=== PATIENT | female | born 1945 | race African-American/Black ===

== ENCOUNTER 2020-02-14 16:01 | Inpatient (IN) | payer MEDICARE ==
--- NOTE | 2020-02-14 17:38 | RAD ---
Chest AP view INDICATION: Chest pain COMPARISON: CT of the thorax dated January 15, 2020 FINDINGS: Lungs: Acute right upper lobe lung mass is stable. Pulmonary nodularity of the left upper lobe persi sts Cardiac silhouette: There is mild cardiomegaly Pulmonary vasculature: There is mild pulmonary vascular congestion Pleural spaces: There are small bilateral pleural effusions Upper abdomen: No abnormality seen. Osseous structures: No acute osseous abnormality. Additional findings: None. IMPRESSION: 1. Findings suspicious for volume overload or mild CHF. 2. Stable large right upper lobe pulmonary nodule and pulmonary nodularity of the left upper lobe.
[2020-02-14 17:48] LABS: #Basophils 0.1 thou/uL (0.0-0.2); #Eosinphils 0.1 thou/uL (0.0-0.7); #Lymphocytes 0.7 thou/uL (1.20-3.40); #Monocytes 0.7 thou/uL (0.11-0.59); #Neutrophils 7.6 thou/uL (1.40-6.50); %Basophils 0.5 % (0.0-1.0); %Eosinophils 1.1 % (0.0-10.0); %Lymphocytes 7.1 % (21.0-51.0); %Monocytes 7.9 % (0.0-10.0); %Neutrophils 83.3 % (42.0-75.0); Hemoglobin 12.1 g/dL (12.0-16.0); Mean Corpuscular HGB CONC 32.2 g/dL (32.0-36.0); Mean Corpuscular Hemoglobin 26.6 pg (27.0-31.0); Mean Corpuscular Volume 82.6 fL (78.0-98.0); Platelet Count 403 thou/uL (130-400); RBC Distribution Width 13.8 % (11.5-14.5); Red Blood Cell (RBC) Count 4.56 mill/uL (4.20-5.40); White Blood Cell (WBC) Count 9.2 thou/uL (4.8-10.8)
[2020-02-14 18:11] LABS: ALT (SGPT) 10 U/L (8-55); AST (SGOT) 15 U/L (5-34); Albumin 3.5 g/dL (3.4-4.8); Alkaline Phosphatase 67 U/L (40-110); Anion Gap 14 mmol/L (10-20); BUN (Urea Nitrogen) 16 mg/dL (9.8-20.1); Bilirubin, Total 0.2 mg/dL (0.2-1.2); Calc. Creatinine Clearance 0 mL/min (70-130); Calcium 9.4 mg/dL (7.8-10.44); Carbon Dioxide 27 mmol/L (23-31); Chloride 103 mmol/L (98-107); Globulin 3.6 g/dL (2.4-3.5); Glucose 72 mg/dL (83-110); Potassium 4.3 mmol/L (3.5-5.1); Protein, Total 7.1 g/dL (6.0-8.3); Sodium 140 mmol/L (136-145)
--- NOTE | 2020-02-14 20:09 | PDOC.FPRHP ---
- History of Present Illness Chief Complaint: SOB History of Present Illness: Patient is a 74 yo female with PMH of HTN, HLD, DMII, metastatic lung cancer who was sent from radiation therapy due to hypoxia and orthopnea. According to the patient, she was diagnosed with lung cancer ~ 1 month ago. She has undergone bronchoscopy, PET scan, and Brain MRI which reveal small mets to the brain. She is currently undergoing radiation with plans to start chemotherapy in March. She reports that she has been experiencing SOB with exertion and orthopnea for ~ 3 weeks. She denies any fever, chills, or sick contacts. She is not on O2 at home. She reports a significant smoking history but denies diagnosis of COPD. - Allergies/Adverse Reactions Allergies Allergy/AdvReac Type Severity Reaction Status Date / Time No Known Drug Allergies Allergy Unverified 02/14/20 22:13 - History PMHx: HTN, HLD, DMII, Metastatic Lung Cancer, Thyroid Goiter PSHx: Bronchoscopy in 2019 FHx: heart disease in grandfather, breast cancer in mother Social: smoked 1/2 ppd of cigarettes for 50-60 years, quit 2 weeks ago, denies a/d, retired - Review of Systems General: reports: weight/appetite/sleep changes. denies: fever/chills Eyes: denies: eye pain, vision changes ENT: denies: nasal congestion, rhinorrhea Respiratory: reports: cough, shortness of breath Cardiovascular: denies: chest pain, edema Gastrointestinal: denies: nausea, vomiting, abdominal pain Genitourinary: denies: dysuria, polyuria Skin: denies: rashes, jaundice Musculoskeletal: reports: pain. denies: swelling Neurological: denies: numbness, weakness Psychological: denies: anxiety, depression - Vital signs BP: 116/90 HR: 93 RR: 16 Tmax: 98.6 Pox: 100% on 2L Wt: 55 kg - Physical Exam Constitutional: NAD, awake, alert and oriented HEENT: normocephalic and atraumatic, PERRLA, EOMI, grossly normal vision, grossly normal hearing Neck: supple -Neck: Thyroid goiter Heart: RRR, normal S1/S2 Lungs: no respiratory distress -Lungs: Decreased breath sounds on the right Abdomen: soft, non-tender, bowel sounds present Musculoskeletal: normal structure, normal tone Neurological: no focal deficit, CN II-XII intact Skin: no rash/lesions, no jaundice Heme/Lymphatic: no unusual bruising or bleeding, no purpura Psychiatric: normal mood and affect, good judgment and insight FMR H&P: Results - Labs Result Diagrams: 02/15/20 02:27 02/15/20 02:27 Lab results: WBC 9.2 thou/uL (4.8-10.8) 02/14/20 17:26 Hgb 12.1 g/dL (12.0-16.0) 02/14/20 17:26 Hct 37.6 % (36.0-47.0) 02/14/20 17:26 MCV 82.6 fL (78.0-98.0) 02/14/20 17:26 Plt Count 403 thou/uL (130-400) H 02/14/20 17:26 Neutrophils % 83.3 % (42.0-75.0) H 02/14/20 17:26 Sodium 140 mmol/L (136-145) 02/14/20 17:26 Potassium 4.3 mmol/L (3.5-5.1) 02/14/20 17:26 Chloride 103 mmol/L (98-107) 02/14/20 17:26 Carbon Dioxide 27 mmol/L (23-31) 02/14/20 17:26 BUN 16 mg/dL (9.8-20.1) 02/14/20 17:26 Creatinine 0.66 mg/dL (0.6-1.1) 02/14/20 17:26 Glucose 72 mg/dL (83-110) L 02/14/20 17:26 Calcium 9.4 mg/dL (7.8-10.44) 02/14/20 17:26 Total Bilirubin 0.2 mg/dL (0.2-1.2) 02/14/20 17:26 AST 15 U/L (5-34) 02/14/20 17:26 ALT 10 U/L (8-55) 02/14/20 17:26 Alkaline Phosphatase 67 U/L (40-110) 02/14/20 17:26 Serum Total Protein 7.1 g/dL (6.0-8.3) 02/14/20 17:26 Albumin 3.5 g/dL (3.4-4.8) 02/14/20 17:26 - Radiology Interpretation Chest x-ray Status: image reviewed by me, report reviewed by me Additional comment: Findings suspicious for volume overload or mild CHF Stable large right upper lobe pulmonary nodule and pulmonary nodularity of the left upper lobe FMR H&P: A/P - Problem List (1) Acute respiratory failure with hypoxia Current Visit: Yes Status: Acute Code(s): J96.01 - ACUTE RESPIRATORY FAILURE WITH HYPOXIA (2) HTN (hypertension) Current Visit: No Status: Chronic Code(s): I10 - ESSENTIAL (PRIMARY) HYPERTENSION (3) HLD (hyperlipidemia) Current Visit: No Status: Chronic Code(s): E78.5 - HYPERLIPIDEMIA, UNSPECIFIED (4) Type 2 diabetes mellitus Current Visit: No Status: Chronic (5) Thyroid goiter Current Visit: No Status: Chronic Code(s): E04.9 - NONTOXIC GOITER, UNSPECIFIED - Plan 74 yo female with PMH of HTN, HLD, DMII, and metastatic lung cancer presents for SOB. Acute hypoxic respiratory failure likely 2/2 to lung cancer - found to be hypoxic during radiation therapy with 3 week history of SOB and orthopnea, - chest xray: - no history of CHF, does not appear volume overloaded on exam - this is likely 2/2 to cancer - will consult oncology and pulmonology in AM - due to long smoking history and possibility of COPD, will add prn alessandro - palliative care consulted due to cancer diagnosis - will make NPO at midnight pending pulmonology recs, LR @ 80 mls/hr HTN - continue home meds HLD - continue home meds DMII - continue home meds - SSI ordered, hypoglycemia protocol ordered Thyroid Goiter - patient reports negative workup in the past and is asymptomatic - will obtain TSH Code: Full PCP: Dmitri PPx: Heparin Diet: NPO at midnight followed by regular diet IVF: LR @ 80 mls/hr Dispo: will admit to medical for further evaluation FMR H&P: Upper Level - Plan Date/Time: 02/14/202008 uJan C Huerta DO, have evaluated this patient and agree with findings/plan as outlined by internet architect resident. Pertinent changes/additions are listed here. 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 She was sent over for SOB and orthopnea. She is currently undergoing radiation therapy for her cancer and sees Dr. Hernandez for her cancer and Dr. Almonte for pulmology. She denies cough, nausea, vomiting, diarrhea, or consipation. Currently she states she feels better on 2LNC. She was diagnosed with adenocarcinoma on 01/19/20. A PET scan shows large mass in her right upper lung, 3 small nodules in left upper lobe, no distant metastasis, enlarged thyroid gland that is not hypermetabolic MRI brain shows three small metastasis VS are BP 116/90, HR 93, RR 16, Temp 98.6, SpO2 100% on 2L. She appears in no acute distress. Head is AT/NC and pt has MMM. Heart is RRR with no murmurs. Pt has decreased breath sounds on the right side, otherwise no crackles or wheezing. Abdomen is soft and non-tender, peripheral pulses present. A/P Acute hypoxic respiratory failure likely 2/2 pt's cancer. We will admit to the floor and provide respiratory support. Plan on consulting Pulm and oncology tomorrow. Pt appears stable at this time. PRN duonebs given her SOB and long standing toba account liaison hospice use. We will assess TSH for her goiter. Code: Full Prophylaxis: Heparin, pending a possible lung procedure Family: Son at bedside Fluids: mIVF Diet: Regular, NPO after midnight Disposition: DC in 1-2 days PCP: Dr. Rizvi
[2020-02-15] MEDS: Heparin 5,000 UNITS/ML VIAL SC SCH ×4 (00:05→20:29)
[2020-02-15] MEDS ORDERED: Dextrose 50% Abboject 50 ML SYRINGE SLOW IVP PRN (01:36)
[2020-02-15] MEDS ORDERED: HumaLOG 300 UNITS/3 ML VIAL SC PRN ×2 (01:36)
[2020-02-15] MEDS ORDERED: Dextrose 5% in Water 1,000 ML IV PRN (01:36)
[2020-02-15] MEDS: Lactated Ringer's 1,000 ML IV SCH ×2 (01:53→14:17)
[2020-02-15 02:37] LABS: #Eosinphils 0.1 thou/uL (0.0-0.7); #Lymphocytes 0.5 thou/uL (1.20-3.40); #Monocytes 0.8 thou/uL (0.11-0.59); #Neutrophils 5.9 thou/uL (1.40-6.50); %Basophils 0.6 % (0.0-1.0); %Eosinophils 0.9 % (0.0-10.0); %Lymphocytes 6.8 % (21.0-51.0); %Monocytes 10.3 % (0.0-10.0); %Neutrophils 81.4 % (42.0-75.0); Hemoglobin 11.4 g/dL (12.0-16.0); Mean Corpuscular HGB CONC 31.8 g/dL (32.0-36.0); Mean Corpuscular Hemoglobin 26.3 pg (27.0-31.0); Mean Corpuscular Volume 82.6 fL (78.0-98.0); Mean Platelet Volume 6.8 fL (7.4-10.4); Platelet Count 388 thou/uL (130-400); RBC Distribution Width 13.7 % (11.5-14.5); Red Blood Cell (RBC) Count 4.33 mill/uL (4.20-5.40); White Blood Cell (WBC) Count 7.3 thou/uL (4.8-10.8)
[2020-02-15 03:04] LABS: Anion Gap 14 mmol/L (10-20); BUN (Urea Nitrogen) 13 mg/dL (9.8-20.1); Calc. Creatinine Clearance 0 mL/min (70-130); Calcium 9.1 mg/dL (7.8-10.44); Carbon Dioxide 26 mmol/L (23-31); Chloride 103 mmol/L (98-107); Glucose 123 mg/dL (83-110); Sodium 139 mmol/L (136-145)
[2020-02-15] MEDS ORDERED: Acetaminophen 325 MG TAB PO PRN (03:30)
--- NOTE | 2020-02-15 06:18 | PDOC.FM ---
- Subjective Subjective: Pt resting comfortably in bed this AM. No acute events overnight. States that her breathing is improved with the NC. No pain at this time. - Objective Result Diagrams: 02/15/20 02:27 02/15/20 02:27 Phys Exam - Physical Examination Constitutional: NAD HEENT: moist MMs Neck: supple thyroid goiter seen non tender Respiratory: no wheezing, no rales, no rhonchi poor inspriatory effort Cardiovascular: RRR, no significant murmur, no rub Gastrointestinal: soft, non-tender, no distention, positive bowel sounds Musculoskeletal: pulses present Neurological: normal sensation Psychiatric: normal affect, A&O x 3 Skin: normal turgor Dx/Plan - Plan Plan: Acute hypoxic respiratory failure likely 2/2 to stage 4 adenocarcinoma - has mets to brain - will contact pt's oncologist Dr. Hernandez and pulmonoligst Dr. Gage Bailey added due to patient's hx of COPD - palliative care consulted due to cancer diagnosis - currently NPO awaiting pulm recs - currently on 3L NC saturating 96-98% HTN - continue home meds HLD - continue home meds DMII - continue home meds - SSI ordered, hypoglycemia protocol ordered Thyroid Goiter - patient reports negative workup in the past and is asymptomatic - TSH 0.1784, T4 pending Code: Full PPx: Heparin Diet: NPO at midnight followed by regular diet IVF: LR @ 80 mls/hr PCP: Dmitri Roblero as of 02/14: Pt awaiting transfer out of ER hold at this time. Currently saturating 98% on 3L NC. VSS at this time. Will consult specialists today for recommendations.
[2020-02-15 06:26] LABS: SARS-CoV-2 MS2 Positive; SARS-CoV-2 N Gene Negative; SARS-CoV-2 S Gene Negative; SARS-CoV-2 by NAA Not Detected (NotDetected); SARS-CoV-2 orf1ab Negative
[2020-02-15] MEDS ORDERED: Morphine 4 MG/ML VIAL SLOW IVP SCH (12:30)
[2020-02-15 13:40] VITALS: BMI 22.1
[2020-02-15] MEDS ORDERED: HYDROcodone/Acetaminophen 5/325 mg Tablet PO PRN (16:30)
--- NOTE | 2020-02-15 16:45 | CON ---
DATE OF CONSULTATION: HISTORY OF PRESENT ILLNESS: Leigh Lundberg is a 74-year-old female, who was brought into the ER with shortness of breath. She was recently diagnosed to have a [id number] bronchogenic carcinoma. Bronchoscopy revealed complete right upper lung atelectatic changes. She now is undergoing radiation, to be followed by chemotherapy. She is having more difficulty breathing. She is presently sitting comfortably in bed. She had a coronavirus serology done, which was negative. PAST MEDICAL HISTORY: As outlined. Pertinent for COPD, metastatic xqc-wqjyl-vdvv cancer, hypertension, diabetes, thyroid goiter. PREVIOUS SURGERIES: Bronchoscopy. HOME MEDICATIONS: 1. Crestor. 2. Hydrocodone. 3. Niacin. 4. Altace. 5. Glipizide. 6. Metformin. ALLERGIES: NONE. REVIEW OF SYSTEMS: 10-point negative. PHYSICAL EXAMINATION: VITAL SIGNS: Temperature 98, pulse 96, sats 100% on room air, respiratory rate 18, blood pressure 130/71. CHEST: Decreased breath sounds in the right lung, left lung unremarkable. CARDIAC: Normal S1, S2. No gallops. ABDOMEN: No masses. LABORATORY DATA: Renal function normal. White count 7000, H and H 11 and 35, platelet count is normal. X-ray shows a large right upper lung mass, seen on previous x-rays, possible subpulmonic effusion. IMPRESSION: Respiratory failure, ufd-wnops-huzp lung cancer, right upper lung mass, possible subpulmonic effusion, cachexia, hypertension. PLAN: thoracentesis otherwise. Neb treatments, steroids, supportive care. Consultation note, 70 minutes, 50% direct patient care. Job ID: [id number]
--- NOTE | 2020-02-15 17:08 | RAD ---
EXAM: XR Chest Rt Lat Decub Only DATE: 02/15/2020 4:50 PM INDICATION: Evaluate for effusion COMPARISON: None. FINDING: Ovhxp-hopc-cvxl lateral decubitus demonstrates a large right upper lobe lung mass. There is mild layering of a small right pleural effusion. No definite pneumothorax is demonstrated. Overlying breast soft tissues limits image detail of the cardiac silhouette. IMPRESSION:Mild layering of a small right pleural effusion. Large right upper lobe mass.
--- NOTE | 2020-02-15 17:09 | RAD ---
EXAM: XR Chest Lt Lat Decub Only DATE: 02/15/2020 4:50 PM INDICATION: Effusion COMPARISON: Prior chest radiograph dated February 14, 2020 FINDING: There is a small layering effusion within the left hemithorax. There is a large right upper lobe lung mass. No definite pneumothorax is evident. IMPRESSION:Small layering left sided pleural effusion.
[2020-02-15] MEDS: methylPREDNISolone Sod Succ 40 MG VIAL IVP SCH ×2 (17:16→23:23)
[2020-02-15] MEDS: metFORMIN 500 MG TAB PO SCH (17:20)
[2020-02-15] MEDS: Mometasone 200 MCG/Formoterol 5 MCG 120 PUFF INHALER INH SCH (18:41)
[2020-02-15] MEDS: HYDROcodone/Acetaminophen 5/325 mg Tablet PO PRN (18:44)
[2020-02-15] MEDS ORDERED: Rosuvastatin 10 MG TAB PO SCH (21:00)
[2020-02-16] MEDS: Heparin 5,000 UNITS/ML VIAL SC SCH ×2 (05:54→15:36)
--- NOTE | 2020-02-16 06:02 | PDOC.FM ---
- Subjective Subjective: Pt resting comfortably in bed this AM. No acute events overnight. - Objective Vital Signs & Weight: Vital Signs (12 hours) Temp Pulse Resp BP Pulse Ox 02/16/20 04:00 97.8 F 95 18 119/75 95 02/16/20 01:00 98.0 F 92 18 128/70 93 L 02/15/20 21:00 97.6 F 90 20 118/69 94 L 02/15/20 20:42 94 L 02/15/20 18:40 96 12 93 L Weight Weight 54.885 kg I&O: 02/14/20 02/15/20 02/16/20 06:59 06:59 06:59 Intake Total 500 Balance 500 Result Diagrams: 02/16/20 05:53 02/16/20 05:53 Phys Exam - Physical Examination Constitutional: NAD 2L NC HEENT: moist MMs Neck: supple Respiratory: no rales, no rhonchi Cardiovascular: RRR, no significant murmur, no rub Gastrointestinal: soft, non-tender, no distention, positive bowel sounds Musculoskeletal: pulses present Neurological: normal sensation Psychiatric: A&O x 3 Skin: normal turgor Dx/Plan - Plan Plan: Acute hypoxic respiratory failure likely 2/2 to non-small cell bronchogenic carcinoma with metastasis - Duonebs and IV steroids as patient has COPD hx - Contacted pulm Dr. Almonte, appreciate recs, discuss with Dr. Almonte this morning that thoracentesis is not necessary. Will send home with 10 days total of steroids. - Dr. Hernandez aware that patient is here - Palliative care consulted and discussed with patient about MPOA yesterday. - Currently on 2L NC saturating 98%. Stable. HTN - continue home meds HLD - continue home meds DMII - continue home meds - SSI ordered, hypoglycemia protocol ordered Thyroid Goiter - patient reports negative workup in the past and is asymptomatic - TSH 0.1784, T4 pending Code: Full PPx: Heparin DIET: Regular PCP: Dmitri Roblero as of 02/15: Currently saturating 98% on 2L NC. VSS at this time. Thoracentesis not indicated at this time. Will send home with steroids. Will f/u with CM for home oxygen requirement prior to d/c today.
--- NOTE | 2020-02-16 06:07 | PRG ---
DATE OF SERVICE: 02/15/2020 ADDENDUM: This is an addendum to the note of Dr. Nathalie Dejesus. Ms. Lundberg is a pleasant but unfortunate 74-year-old black female patient recently diagnosed with lung cancer. She also has a history of hypertension, hyperlipidemia, type 2 diabetes. Her lung cancer is unfortunately metastatic to the brain and she is undergoing radiation therapy and will begin chemotherapy in March. She presented with some increased orthopnea and hypoxia. We will start her on some DuoNeb, watch her blood pressure, monitor her diabetes, and consult with her construction project mgr and oncologist. Job ID: [id number]
[2020-02-16 06:29] LABS: #Lymphocytes 0.2 thou/uL (1.20-3.40); #Neutrophils 5.1 thou/uL (1.40-6.50); %Basophils 0.5 % (0.0-1.0); %Eosinophils 0.1 % (0.0-10.0); %Lymphocytes 3.7 % (21.0-51.0); %Monocytes 0.8 % (0.0-10.0); %Neutrophils 94.8 % (42.0-75.0); Hemoglobin 11.5 g/dL (12.0-16.0); Mean Corpuscular Hemoglobin 25.2 pg (27.0-31.0); Mean Corpuscular Volume 81.3 fL (78.0-98.0); Mean Platelet Volume 7.2 fL (7.4-10.4); Platelet Count 350 thou/uL (130-400); RBC Distribution Width 13.5 % (11.5-14.5); Red Blood Cell (RBC) Count 4.56 mill/uL (4.20-5.40); White Blood Cell (WBC) Count 5.3 thou/uL (4.8-10.8)
[2020-02-16 06:49] LABS: Anion Gap 14 mmol/L (10-20); BUN (Urea Nitrogen) 13 mg/dL (9.8-20.1); Calc. Creatinine Clearance 73 mL/min (70-130); Calcium 9.1 mg/dL (7.8-10.44); Carbon Dioxide 25 mmol/L (23-31); Chloride 103 mmol/L (98-107); Glucose 179 mg/dL (83-110); Potassium 4.2 mmol/L (3.5-5.1); Sodium 138 mmol/L (136-145)
[2020-02-16] MEDS: Mometasone 200 MCG/Formoterol 5 MCG 120 PUFF INHALER INH SCH (08:00)
[2020-02-16] MEDS ORDERED: predniSONE 50 MG TAB PO SCH (08:00)
[2020-02-16] MEDS ORDERED: Niacin 500 MG TAB PO SCH (09:00)
[2020-02-16] MEDS ORDERED: BIOTIN 1000 MCG PO SCH (09:00)
[2020-02-16] MEDS ORDERED: FOLIC ACID PO SCH (09:00)
[2020-02-16] MEDS ORDERED: Aspirin Chewable 81 MG TAB PO SCH (09:00)
[2020-02-16] MEDS ORDERED: FLU VACC QS2020-21(65YR UP)/PF 240 MCG/0.7 ML SYRINGE IM ONE (09:00)
[2020-02-16] MEDS ORDERED: [UNRECOGNIZED DRUG - OTHER] PO SCH (09:00)
[2020-02-16] MEDS ORDERED: B6 PO SCH (09:00)
[2020-02-16] MEDS ORDERED: VIT B12 PO SCH (09:00)
[2020-02-16] MEDS ORDERED: [UNRECOGNIZED DRUG - MIXTURE] PO SCH (09:00)
[2020-02-16] MEDS: metFORMIN 500 MG TAB PO SCH (09:31)
--- NOTE | 2020-02-16 10:02 | PRG ---
DATE OF SERVICE: SUBJECTIVE: This morning is awake, alert, and responsive. She is less short of breath. OBJECTIVE: VITAL SIGNS: Temperature 97, pulse 99, respiratory rate 18, sats 97% on 2L, blood pressure 130/80. CHEST: Good breath sounds in right base. CARDIAC: Normal S1, S2. No gallops. ABDOMEN: No masses. Decubitus x-ray yesterday shows a very small right-sided layering pleural effusion not enough to do a thoracentesis. ASSESSMENT AND PLAN: Right upper lung mass, non small cell bronchogenic carcinoma, very small right pleural effusion, chronic obstructive pulmonary disease, cachexia. No need to do a thoracentesis at this stage. She can be discharged home on tapering prednisone for several days. Job ID: [id number]
[2020-02-16] MEDS: methylPREDNISolone Sod Succ 40 MG VIAL IVP SCH (10:18)
[2020-02-16 12:15] VITALS: BP 107/63; TEMP 97.3
[2020-02-16] MEDS: HYDROcodone/Acetaminophen 5/325 mg Tablet PO PRN (15:36)
[2020-02-16] MEDS ORDERED: Senokot S 8.6-50 MG TAB PO SCH (21:00)
--- NOTE | 2020-02-17 07:35 | PRG ---
DATE OF SERVICE: 02/16/2020 ADDENDUM: This is an addendum to the note of Dr. Nathalie Dejesus. I have read Dr. Dejesus's note and discussed the case with her. I agree with her assessment and plan. Job ID: [id number]
--- NOTE | 2020-02-17 15:23 | EKG ---
Test Reason : Blood Pressure : / mmHG Vent. Rate : 095 BPM Atrial Rate : 095 BPM P-R Int : 162 ms QRS Dur : 066 ms QT Int : 336 ms P-R-T Axes : 059 -36 042 degrees QTc Int : 422 ms Normal sinus rhythm Left axis deviation Low voltage QRS Abnormal ECG Confirmed by MILENA LEMUS, SHEA ([id number]), city editor EFREN GAN ([id number]) on 02/17/2020 3:22:44 PM Referred By: Confirmed By:SHEA ABBOTT MD
--- NOTE | 2020-02-19 04:38 | PQF ---
CLINICAL DOCUMENTATION CLARIFICATION FORM: Dear : Seth Blanco Date / Time: 02/19/2020 1559 Please exercise your independent, professional judgment in responding to the clarification form. Clinical indicators are provided on the bottom of this form for your review Please check appropriate box(es): [ ] Protein Calorie Malnutrition: [ ] Mild [ ] Moderate [ ] Severe [ ] Other Malnutrition (please specify) [ ] Underweight without malnutrition [ ] Cachexia [ ] Other diagnosis, please specify [ ] Unable to determine In addition, please specify: Present on Admission (POA): [ ] Yes [ ] No [ ] Unable to determine Physician Signature: Date/Time: For continuity of documentation, please document condition throughout progress notes and discharge summary. Thank You To be completed by CDI/Coding staff for physician review: Present Clinical Indicators - Signs / Symptoms / Labs Results and Location in Medical Record [X] BP 132/71, Pulse 96, Resp 18, Temp 98.2 Vital signs 02/13 Serum Total Protein 7.1, Albumin 3.5, Globolin 3.6, Ratio 1.0 Laboratory 02/13 [X] BMI of 22 Nutritional assessment [facility] 02/15 [X] Moderate to severe muscle wasting, estimated intake, suggestive of severemalnutrition in the context of chronic illness Nutritional assessment [facility] 02/15 [X] Decreased appetite Nutritional assessment [facility] 02/15 [X] Weight loss Nutritional assessment [facility] 02/15 Present Risk Factors Results and Location in Medical Record [X] 74 year-old Female H&P p1 02/13 Dr Solo [X] Lung cancer with brain mets H&P p1 02/13 Dr Solo [X] Thyroid Goiter H&P p1 02/13 Dr Solo [X] Smoker H&P p1 02/13 Dr Solo Present Treatments Results and Location in Medical Record [X] Dietary consult Nutritional assessment [facility] 02/15 [X] Nutritional supplements Nutritional assessment [facility] 02/15 [X] Weight monitoring Nutritional assessment [facility] 02/15 [X] Oral intake monitoring Nutritional assessment [facility] 02/15 [X] Appetite stimulant - medication Nutritional assessment [facility] 02/15 CDS/Power Plant Inspector Signature: Jayne Starr Phone #: ext [phone] Date/Time: 02/19/2020 0429 Moderate Malnutrition (in acute illness) ? Energy Intake: <75% of estimated energy requirement for > 7 days ? Weight Loss: 1-2%/1 week; 5%/ 1 month; 7.5%/3 months ? Other: mild body fat loss; mild muscle mass loss; mild fluid accumulation; Severe Malnutrition (in acute illness) ? Energy Intake: ? 50% of estimated energy requirement for ? 5 days ? Weight Loss: >2%/1 week; >5%/1 month; >7.5%/3 months ? Other: moderate body fat loss; moderate muscle mass loss; moderate- severe fluid accumulation; measurably reduced mask design engineer strength Moderate Malnutrition (in chronic illness) ? Energy Intake: <75% of estimated energy requirement for ?1 month ? Weight Loss: 5%/1 month; 7.5%/3 months; 10%/6 months; 20%/1 year ? Other: mild body fat loss; mild muscle mass loss; mild fluid accumulation Severe Malnutrition (in chronic illness) ? Energy Intake: ?75% of estimated energy requirement for ?1 month ? Weight Loss: >5%/1 month; >7.5%/3 months; >10%/6 months; >20%/1 year ? Other: severe body fat loss; severe muscle mass loss; severe fluid accumulation; measurably reduced mask design engineer strength This is a permanent part of the Medical Record [facility]
--- NOTE | 2020-02-19 13:39 | DIS ---
DATE OF ADMISSION: 02/14/2020 DATE OF DISCHARGE: 02/16/2020 RESIDENT: Nathalie Dejesus DO ADMITTING ATTENDING: Homero Maldonado MD DISCHARGE ATTENDING: Seth Copeland MD CONSULTS: Dr. Maik Almonte of Pulmonology. PROCEDURES: Chest x-ray done on 02/14/2020 showed findings suspicious for volume overload, stable right large upper lobe pulmonary nodule and pulmonary nodularity of the left upper lobe. PRIMARY DIAGNOSIS: Acute hypoxic respiratory failure secondary to lung cancer. SECONDARY DIAGNOSES: Hypertension, hyperlipidemia, type 2 diabetes, and thyroid goiter. DISCHARGE MEDICATIONS: 1. Rosuvastatin 10 mg p.o. at bedtime. 2. [place] 2 tablets p.o. q.6. 3. Biotin 1000 mcg p.o. daily. 4. [place]-3 of 350 mg p.o. daily. 5. Niacin 500 mg p.o. daily. 6. Glipizide 5 mg p.o. daily. 7. Vitamin D3 of 1,000 mg p.o. daily. 8. Ramipril 2.5 mg p.o. daily. 9. Metformin 1000 mg p.o. b.i.d. 10. Vitamin B12 one cap p.o. daily. 11. Aspirin 81 mg p.o. daily. 12. Prednisone 40 mg p.o. for 8 days for a total of 10 days of being on steroids. DISCONTINUED MEDICATIONS: None. HISTORY OF PRESENT ILLNESS/HOSPITAL COURSE: This is a 74-year-old female with a past medical history of above, who was sent from her radiation therapy (radiation oncologist is Dr. Hernandez) due to hypoxia and orthopnea during her treatment. According to the patient, she was diagnosed with lung cancer (non-small cell adenocarcinoma( about a month ago. She has undergone bronchoscopy, PET scan, and a brain MRI, which revealed small metastases to the brain. She was currently undergoing radiation with plans to start chemotherapy in March. She reported that she has been experiencing shortness of breath with exertion and orthopnea for three weeks. She denied any fever, chills, or sick contacts. She is not on oxygen at home. She reports a significant smoking history, but denied any diagnoses of COPD. The patient was admitted and the chest x-ray showed that the patient was volume overloaded with potential pleural effusion. For this reason, she was admitted and Dr. Almonte of Pulmonology was consulted for a potential thoracentesis. Otherwise, the patient was still on 2 L of oxygen, requiring this only at night. Dr. Almonte of Pulmonology repeated chest x-ray on 02/15/2020, which showed no change in the pleural effusion and stated that the reason for her acute hypoxic respiratory failure was secondary to COPD exacerbation as well as her lung cancer, so this was treated with steroids for a total of [address] Almonte of Pulmonology deemed that the patient would not need thoracentesis while she was in the hospital. The patient was sent home on home oxygen for this reason. DISPOSITION: Stable. DISCHARGE INSTRUCTIONS: 1. Location: Home. 2. Diet: Regular. 3. Activity: As tolerated. 4. Followup: Within 7-[address] Almonte and Dr. Hernandez of Radiation Oncology as well as Primary Care Physician Job ID: [id number] MTDD
== END 2020-02-16 16:38 | disposition home or self-care (01) | DRG 189 ==
LOC: ERS 16:01 → ERHOLD 20:21 → T4-B 02-15 13:12
PROVIDERS: ADMIT Family Medicine; ATTEND Family Medicine
DX: J96.01 Acute respiratory failure with hypoxia (principal); C79.31 Secondary malignant neoplasm of brain; C34.11 Malignant neoplasm of upper lobe, right bronchus or lung; R64 Cachexia; J90 Pleural effusion, not elsewhere classified; Z20.828 Contact with and (suspected) exposure to other viral communicable diseases; E78.5 Hyperlipidemia, unspecified; I10 Essential (primary) hypertension; E04.9 Nontoxic goiter, unspecified; J44.9 Chronic obstructive pulmonary disease, unspecified; E11.9 Type 2 diabetes mellitus without complications; Z23 Encounter for immunization; Z87.891 Personal history of nicotine dependence; Z68.22 Body mass index [BMI] 22.0-22.9, adult; Z79.899 Other long term (current) drug therapy; Z79.82 Long term (current) use of aspirin; Z79.84 Long term (current) use of oral hypoglycemic drugs
CPT/HCPCS: 36415; 36416; 71045; 77014; 77280; 77336; 77412; 80048; 80053; 84436; 84443; 85025; 87635; 93005; 94640; J1644; J2920; J7512; J7620; U0003

== ENCOUNTER 2020-03-08 07:39 | Outpatient (CLI) | payer MEDICARE ==
--- NOTE | 2020-03-08 14:51 | RAD ---
Chest one view HISTORY: Preop. COMPARISON: 02/14/2020. FINDINGS: Cardiac silhouette remains partially obscured by an elevated right hemidiaphragm. Pulmonary vasculature upper limits of normal. Complete opacification of the right upper chest with the appearance of right upper lobe atelectasis i s similar in appearance to the prior exam. Blunting of the left lateral costophrenic angle and associated basilar parenchymal opacity have increased slightly. Nodule projecting over the left upper chest is unchanged. Mediastinum is midline. IMPRESSION : Interval increase in left pleural fluid/basilar atelectasis. Right upper lobe consolidation, left upper lobe nodule, and other findings are otherwise stable.
[2020-03-09 02:28] LABS: SARS-CoV-2 MS2 Positive; SARS-CoV-2 N Gene Negative; SARS-CoV-2 S Gene Negative; SARS-CoV-2 by NAA Not Detected (NotDetected); SARS-CoV-2 orf1ab Negative
== END 2020-03-08 07:40 | disposition home or self-care (01) ==
LOC: LABBT 07:39
PROVIDERS: ATTEND Specialist
DX: Z01.818 Encounter for other preprocedural examination (principal); Z20.822 Contact with and (suspected) exposure to COVID-19; C34.92 Malignant neoplasm of unspecified part of left bronchus or lung
CPT/HCPCS: 71046; 93005; U0003; 87635; 93010

== ENCOUNTER 2020-03-13 05:58 | Day surgery (SDC) | payer MEDICARE ==
[2020-03-11 12:26] VITALS: BMI 21.9
[2020-03-13] MEDS ORDERED: Ketorolac Tromethamine 30 MG/ML VIAL ONE (06:05)
[2020-03-13] MEDS ORDERED: Acetaminophen 500 MG TAB ONE (06:05)
[2020-03-13] MEDS ORDERED: Midazolam HCl 2 mg/2 ml Vial ONE (06:35)
[2020-03-13] MEDS ORDERED: Fentanyl 100 MCG/2 ML VIAL ONE (06:35)
[2020-03-13] MEDS ORDERED: Bupivacaine PF 0.5% 30 ML VIAL ONE (06:42)
[2020-03-13] MEDS ORDERED: Lidocaine 1% w/Epinephrine 1:100K 20 ML VIAL ONE (06:42)
--- NOTE | 2020-03-13 08:51 | OP ---
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 PROCEDURE PERFORMED: Placement of left IJ low-profile MediPort. Note, I could access the right subclavian vein, the left subclavian vein, the right IJ, but the J-wire would not thread indicating obstruction of the SVC outflow from these venous structures. Fluoroscopy ultrasound used. ANESTHESIA: Intravenous sedation, local with 0.5% Marcaine, 30 mL, mixed with 1% Xylocaine with epinephrine, 20 mL. DESCRIPTION OF PROCEDURE: The patient was taken to the operating room where under intravenous sedation and in supine position neck and chest prepared with ChloraPrep and draped in routine fashion. Local anesthetic was infiltrated in the skin and subcutaneous tissue about the operative site. I was able to cannulate the right and left subclavian veins, infraclavicular approach, but the J-wire would not thread. The right IJ likewise could be cannulated, but the J-wire would not thread. Left IJ was cannulated under ultrasound guidance, and J-wire threaded, fluoroscopically noted to be in the SVC. The vein was displaced laterally by large goiter and neck mass. Skin incision site enlarged sharply, incision made over the left chest, carried down to skin and subcutaneous tissue, and a subcutaneous pocket created with blunt and sharp dissection to accommodate the MediPort. Tunneling device was used to tunnel the catheter, and dilator and peel-away sheath placed over the J-wire into the SVC under fluoroscopic guidance and J-wire and dilator removed. Catheter placed through the peel-away sheath into the SVC removing the peel-away sheath and then the catheter properly positioned in SVC under fluoroscopic guidance and tailored to length, connected to the MediPort which was placed in the subcutaneous pocket and secured with 2 interrupted sutures of 3-0 Prolene. Subcutaneous tissues approximated with 3-0 Monocryl, skin with subdermal 4-0 Monocryl, and Dermaglue applied. MediPort accessed with a Govea needle, aspirated blood, flushed with heparinized saline solution and was left accessed and sterile dressings applied. Dermabond had been placed on the incisions. The neck incision was closed with 2 interrupted sutures of 4-0 Monocryl, and Dermabond applied. Fluoroscopic images revealed good line and MediPort placement. The patient tolerated the procedure well. Job ID: [id number]
--- NOTE | 2020-03-13 08:54 | RAD ---
Exam: Chest one view HISTORY:Status post Mediport placement Comparison: 03/08/2020 FINDINGS: Cardiac silhouette:Cardiomegaly. Aorta: Atherosclerosis Pulmonary vessels: Normal Costophrenic angles: Clear LUNGS: Stable right upper lobe mass. Versus a left lower lobe infiltrate. Lines and tubes: Interval placement of a left-sided Mediport catheter with the distal tip terminating over the expected region superior vena cava. Pneumothorax: None Osseous abnormalities: None IMPRESSION: 1. Interval placement of a left-sided Mediport catheter. No pneumothorax.
[2020-03-13] MEDS ORDERED: PROPOFOL 200 MG/20 ML VIAL ONE (12:37)
== END 2020-03-13 09:33 | disposition home or self-care (01) ==
LOC: SDC 05:58
PROVIDERS: ATTEND Specialist
PROC: 02HV33Z Insertion of Infusion Device into Superior Vena Cava, Percutaneous Approach (ICD-10-PCS; principal; 2020-03-13)
DX: C34.92 Malignant neoplasm of unspecified part of left bronchus or lung (principal); E03.9 Hypothyroidism, unspecified; E11.9 Type 2 diabetes mellitus without complications; E78.00 Pure hypercholesterolemia, unspecified; Z79.82 Long term (current) use of aspirin; Z79.84 Long term (current) use of oral hypoglycemic drugs; Z79.899 Other long term (current) drug therapy; Z87.891 Personal history of nicotine dependence
CPT/HCPCS: 71045; C1788; J0690; J1642; J1885; J2250; J3010; S0020

== ENCOUNTER 2020-05-28 08:42 | Outpatient (CLI) | payer MEDICARE | END 2020-05-28 08:43 | disposition home or self-care (01) | LOC: CT 08:42 | PROVIDERS: ATTEND Physician Assistant | DX: I62.03 Nontraumatic chronic subdural hemorrhage (principal) | CPT/HCPCS: 70450 ==

== ENCOUNTER 2020-07-02 11:47 | Outpatient (CLI) | payer MEDICARE ==
[2020-07-03 01:16] LABS: SARS-CoV-2 PCR by NAA Not Detected (NotDetected)
== END 2020-07-02 11:48 | disposition home or self-care (01) ==
LOC: LABBT 11:47
PROVIDERS: ATTEND Internal Medicine Gastroenterology
DX: Z01.812 Encounter for preprocedural laboratory examination (principal); R93.89 Abnormal findings on diagnostic imaging of other specified body structures; C34.90 Malignant neoplasm of unspecified part of unspecified bronchus or lung; Z80.0 Family history of malignant neoplasm of digestive organs; K59.00 Constipation, unspecified; Z20.822 Contact with and (suspected) exposure to COVID-19
CPT/HCPCS: U0003; U0005; 87635

== ENCOUNTER 2020-07-05 12:20 | Day surgery (SDC) | payer MEDICARE ==
[2020-07-04 12:58] VITALS: BMI 23.3
[2020-07-05] MEDS ORDERED: PROPOFOL 200 MG/20 ML VIAL ONE (14:19)
== END 2020-07-05 17:25 | disposition home or self-care (01) ==
LOC: SDC 12:20
PROVIDERS: ATTEND Internal Medicine Gastroenterology
PROC: 0DBP8ZX Excision of Rectum, Via Natural or Artificial Opening Endoscopic, Diagnostic (ICD-10-PCS; principal; 2020-07-05)
PROC: 0DBH8ZX Excision of Cecum, Via Natural or Artificial Opening Endoscopic, Diagnostic (ICD-10-PCS; 2020-07-05)
PROC: 0DBN8ZX Excision of Sigmoid Colon, Via Natural or Artificial Opening Endoscopic, Diagnostic (ICD-10-PCS; 2020-07-05)
DX: D12.0 Benign neoplasm of cecum (principal); D12.5 Benign neoplasm of sigmoid colon; D12.8 Benign neoplasm of rectum; K64.4 Residual hemorrhoidal skin tags; K64.8 Other hemorrhoids; C34.11 Malignant neoplasm of upper lobe, right bronchus or lung; E78.00 Pure hypercholesterolemia, unspecified; K59.09 Other constipation; Z87.891 Personal history of nicotine dependence; Z79.899 Other long term (current) drug therapy
CPT/HCPCS: 88305; J2704; J7620